=== PATIENT | female | born 1950 | race Caucasian/White ===

== ENCOUNTER 2016-11-12 07:10 | Outpatient (CLI) | payer MEDICARE, OTHER ==
[2016-11-12 14:55] LABS: BASOPHILS % (AUTO) 0.6 %; EOSINOPHILS # (AUTO) 0.1 10^3/uL (0.0-0.7); EOSINOPHILS % (AUTO) 2.6 %; HCT - HEMATOCRIT 37.8 % (37.0-47.0); HGB - HEMOGLOBIN 12.8 g/dL (12.0-16.0); LYMPHOCYTES # (AUTO) 1.6 10^3/uL (1.5-3.5); MEAN CORPUSCULAR HEMOGLOBIN 30.7 pg (27.0-31.0); MEAN CORPUSCULAR HGB CONC 33.8 g/dL (32.0-36.0); MEAN CORPUSCULAR VOLUME 90.6 fL (81.0-99.0); MEAN PLATELET VOLUME 7.7 fL (7.9-10.8); MONOCYTES # (AUTO) 0.4 10^3/uL (0.0-1.0); MONOCYTES % (AUTO) 7.7 %; NEUTROPHILS # (AUTO) 2.8 10^3/uL (1.5-6.6); NEUTROPHILS % (AUTO) 57.1 %; RED BLOOD COUNT 4.17 10^6/uL (4.20-5.40); RED CELL DISTRIBUTION WIDTH 13.9 % (12.0-15.0); UNCORRECTED WHITE BLOOD COUNT 4.9 x10^3/uL; WHITE BLOOD COUNT 4.9 x10^3/uL (4.8-10.8)
[2016-11-12 15:09] LABS: ALBUMIN/GLOBULIN RATIO 1.4 (1.0-2.2); BILIRUBIN,TOTAL 0.5 mg/dL (0.2-1.0); BUN - BLOOD UREA NITROGEN 16 mg/dL (6-20); CALCIUM 9.2 mg/dL (8.5-10.3); CARBON DIOXIDE - CO2 26 mmol/L (21-32); CHLORIDE 104 mmol/L (101-111); CHOL/HDL RATIO 3.6 (<4.4); CHOLESTEROL 207 mg/dL; CREATININE 0.6 mg/dL (0.4-1.0); GFR - MDRD 100 (>89); GLUCOSE 97 mg/dL (70-100); HDL CHOLESTEROL 58 mg/dL; LDL/HDL RATIO 2.2 (<4.4); POTASSIUM 3.9 mmol/L (3.5-5.0); SODIUM 136 mmol/L (135-145); TOTAL PROTEIN 7.3 g/dL (6.7-8.2); TRIGLYCERIDES 107 mg/dL; VLDL CHOLESTEROL 21 mg/dL
== END 2016-11-12 07:11 | disposition home or self-care (01) ==
LOC: LAB.WCP 07:10
PROVIDERS: ATTEND Family Medicine
DX: Z00.00 Encounter for general adult medical examination without abnormal findings (principal)
CPT/HCPCS: 36415; 80053; 80061; 85025

== ENCOUNTER 2017-02-07 09:13 | Day surgery (SDC) | payer MEDICARE, OTHER ==
[2017-02-07] MEDS ORDERED: LACTATED RINGERS 1,000 ML IV ONE (09:50)
[2017-02-07] MEDS ORDERED: fentaNYL 100 MCG/2 ML VIAL IVP ONE (10:55)
[2017-02-07] MEDS ORDERED: MIDAZOLAM 2 MG/2 ML VIAL IVP ONE (10:55)
[2017-02-07 11:45] VITALS: BP 96/53
== END 2017-02-07 09:14 | disposition home or self-care (01) ==
LOC: SDS 09:13
PROVIDERS: ATTEND Surgery
PROC: 0DBH8ZX Excision of Cecum, Via Natural or Artificial Opening Endoscopic, Diagnostic (ICD-10-PCS; principal; 2017-02-07 10:15)
DX: Z12.11 Encounter for screening for malignant neoplasm of colon (principal); D12.0 Benign neoplasm of cecum; Z80.0 Family history of malignant neoplasm of digestive organs; K57.30 Diverticulosis of large intestine without perforation or abscess without bleeding
CPT/HCPCS: 45380; J7120; 88305

== ENCOUNTER 2017-03-08 08:19 | Outpatient (CLI) | payer MEDICARE, OTHER ==
--- NOTE | 2017-03-09 15:23 | Mammography Report ---
DIGITAL SCREENING MAMMOGRAM: 03/08/2017 CLINICAL INDICATION: A 66-year-old, for screening. COMPARISON: 02/2016, 01/2015, 12/2013, 11/2012, 11/2011. TECHNIQUE: Routine CC and MLO projections were obtained of the breasts. FINDINGS: The breasts again demonstrate heterogeneously dense fibroglandular parenchyma bilaterally. Punctate, typically benign calcifications are present. No suspicious masses, clustered microcalcific ations, or regions of architectural distortion are identified. IMPRESSION: BENIGN FINDINGS. RECOMMENDATION: ROUTINE ANNUAL SCREENING UNLESS OTHERWISE CLINICALLY INDICATED. BIRADS CATEGORY 2-BENIGN FINDINGS. STANDARD QUALIFYING STATEMENTS 1. This examination was reviewed with the aid of Computer-Aided Detection (CAD). 2. A negative or benign imaging report should not delay biopsy if clinically suspicious findings are present. Consider surgical consultation if warranted. More than 5% of cancers are not identified by i maging. 3. Dense breasts may obscure an underlying neoplasm. JOB #: [id number] EXT JOB #:[id number]
== END 2017-03-08 08:20 | disposition home or self-care (01) ==
LOC: DI 08:19
PROVIDERS: ATTEND Family Medicine
DX: Z12.31 Encounter for screening mammogram for malignant neoplasm of breast (principal)
CPT/HCPCS: 77067

== ENCOUNTER 2017-05-30 08:00 | Outpatient (CLI) | payer MEDICARE, OTHER ==
[2017-05-30 19:40] LABS: BASOPHILS % (AUTO) 0.5 %; EOSINOPHILS # (AUTO) 0.1 10^3/uL (0.0-0.7); EOSINOPHILS % (AUTO) 2.7 %; HGB - HEMOGLOBIN 13.6 g/dL (12.0-16.0); LYMPHOCYTES # (AUTO) 1.6 10^3/uL (1.5-3.5); LYMPHOCYTES % (AUTO) 33.3 %; MEAN CORPUSCULAR HGB CONC 33.1 g/dL (32.0-36.0); MEAN CORPUSCULAR VOLUME 90.7 fL (81.0-99.0); MEAN PLATELET VOLUME 7.9 fL (7.9-10.8); MONOCYTES # (AUTO) 0.3 10^3/uL (0.0-1.0); MONOCYTES % (AUTO) 6.8 %; NEUTROPHILS # (AUTO) 2.7 10^3/uL (1.5-6.6); NEUTROPHILS % (AUTO) 56.7 %; PLT - PLATELET COUNT 300 10^3/uL (130-450); RED BLOOD COUNT 4.53 10^6/uL (4.20-5.40); RED CELL DISTRIBUTION WIDTH 14.3 % (12.0-15.0); WHITE BLOOD COUNT 4.8 x10^3/uL (4.8-10.8)
[2017-05-30 20:16] LABS: ALBUMIN 4.8 g/dL (3.2-5.5); ALBUMIN/GLOBULIN RATIO 1.5 (1.0-2.2); ALKALINE PHOSPHATASE 82 IU/L (42-121); ALT ALANINE AMINOTRANSFERASE 22 IU/L (10-60); AST ASPARTATE AMINOTRANSFERASE 24 IU/L (10-42); BILIRUBIN,TOTAL 0.4 mg/dL (0.2-1.0); BUN - BLOOD UREA NITROGEN 16 mg/dL (6-20); CALCIUM 9.6 mg/dL (8.5-10.3); CARBON DIOXIDE - CO2 25 mmol/L (21-32); CHLORIDE 100 mmol/L (101-111); CREATININE 0.7 mg/dL (0.4-1.0); GFR - MDRD 83 (>89); GLUCOSE 105 mg/dL (70-100); SODIUM 137 mmol/L (135-145); TOTAL PROTEIN 8.1 g/dL (6.7-8.2)
[2017-05-30 20:22] LABS: CRP - C-REACTIVE PROTEIN < 1.0 mg/dL (0-1.0)
== END 2017-05-30 08:01 | disposition home or self-care (01) ==
LOC: LAB.WCP 08:00
PROVIDERS: ATTEND Family Medicine
DX: R10.2 Pelvic and perineal pain (principal)
CPT/HCPCS: 36415; 80053; 85025; 86140; 86304

== ENCOUNTER 2017-06-06 19:50 | Outpatient (CLI) | payer MEDICARE, OTHER ==
--- NOTE | 2017-06-07 16:55 | Ultrasound Report ---
PELVIC ULTRASOUND: 06/06/2017 CLINICAL INDICATION: Pain. TECHNIQUE: Transabdominal pelvic ultrasound performed for global evaluation. Transvaginal pelvic ultrasound performed for detailed evaluation. Real-time scanning performed and static images obtained. FINDINGS: The patient is status post hysterectomy. Neither ovary was confidently identified on transabdominal or transvaginal scanning. No adnexal mass or free fluid is seen. IMPRESSION: NO EVIDENT ETIOLOGY FOR PATIENT'S PAIN. NONVISUALIZATION OF BOTH OVARIES. NO ADNEXAL MASS OR FREE FLUID. TD: 06/07/2017 16:54
== END 2017-06-06 19:51 | disposition home or self-care (01) ==
LOC: DI 19:50
PROVIDERS: ATTEND Family Medicine
DX: R10.2 Pelvic and perineal pain (principal)
CPT/HCPCS: 76830; 76856

== ENCOUNTER 2017-06-15 10:37 | Outpatient (CLI) | payer MEDICARE, OTHER ==
[2017-06-15] MEDS ORDERED: IOPAMIDOL-300 100 ML VIAL ONE (10:57)
[2017-06-15] MEDS ORDERED: IOPAMIDOL-300 50 ML VIAL ONE (10:57)
--- NOTE | 2017-06-15 14:36 | CT Report ---
CT ABDOMEN AND PELVIS WITH CONTRAST: 06/15/2017 CLINICAL INDICATION: Abdominal pain. TECHNIQUE: Axial CT images of the abdomen and pelvis were obtained with 80 mL Isovue 300 intravenously as well as oral contrast. No previous CT is available for comparison. FINDINGS: Limited evaluation of the lung bases demonstrates mild atelectasis. ABDOMEN: The liver demonstrates diffuse decrease in attenuation, compatible with fatty infiltration. No focal hepatic lesion is seen. The spleen, pancreas, kidneys and adrenal glands are unremarkable. The gallbladder is not dilated. No bowel dilatation, free gas, or free fluid is present. No abdominal adenopathy is seen. PELVIS: The patient is status post hysterectomy. Scattered diverticulosis is present, without CT evidence of diverticulitis. No pelvic adenopathy or free fluid is present. Osseous structures demonstrate degenerative changes. IMPRESSION: FATTY INFILTRATION OF THE LIVER. DIVERTICULOSIS WITHOUT CT EVIDENCE OF DIVERTICULITIS. NO EVIDENT ETIOLOGY FOR PATIENT'S ABDOMINAL PAIN. CT DOSE REDUCTION STATEMENT In accordance with CT protocol optimization, one or more of the following dose reduction techniques were utilized for this exam: automated exposure control, adjustment of mA and/or KV based on patient size, or use of iterative reconstructive technique. TD: 06/15/2017 14:35 JOHN
[2017-06-15] MEDS ORDERED: IOPAMIDOL-300 100 ML VIAL IVP ONE (16:45)
[2017-06-15] MEDS ORDERED: IOPAMIDOL-300 50 ML VIAL PO ONE (16:45)
== END 2017-06-15 10:38 | disposition home or self-care (01) ==
LOC: DI 10:37
PROVIDERS: ATTEND Family Medicine
DX: R10.9 Unspecified abdominal pain (principal); K76.0 Fatty (change of) liver, not elsewhere classified; K57.90 Diverticulosis of intestine, part unspecified, without perforation or abscess without bleeding
CPT/HCPCS: 74177; Q9967

== ENCOUNTER 2017-08-03 14:47 | Emergency (ER) | payer MEDICARE, OTHER ==
[2017-08-03] MEDS ORDERED: IOPAMIDOL-300 100 ML VIAL IVP ONE ×2 (14:48→16:08)
[2017-08-03 15:20] LABS: BASOPHILS % (AUTO) 0.4 %; EOSINOPHILS # (AUTO) 0.1 10^3/uL (0.0-0.7); HGB - HEMOGLOBIN 13.7 g/dL (12.0-16.0); LYMPHOCYTES # (AUTO) 1.6 10^3/uL (1.5-3.5); LYMPHOCYTES % (AUTO) 22.9 %; MEAN CORPUSCULAR HEMOGLOBIN 29.7 pg (27.0-31.0); MEAN CORPUSCULAR HGB CONC 33.1 g/dL (32.0-36.0); MEAN CORPUSCULAR VOLUME 89.6 fL (81.0-99.0); MEAN PLATELET VOLUME 7.7 fL (7.9-10.8); MONOCYTES # (AUTO) 0.6 10^3/uL (0.0-1.0); MONOCYTES % (AUTO) 8.4 %; NEUTROPHILS # (AUTO) 4.5 10^3/uL (1.5-6.6); NEUTROPHILS % (AUTO) 66.3 %; PLT - PLATELET COUNT 278 10^3/uL (130-450); RED BLOOD COUNT 4.63 10^6/uL (4.20-5.40); RED CELL DISTRIBUTION WIDTH 13.4 % (12.0-15.0); WHITE BLOOD COUNT 6.8 x10^3/uL (4.8-10.8)
[2017-08-03 15:28] LABS: ALBUMIN 4.9 g/dL (3.2-5.5); ALBUMIN/GLOBULIN RATIO 1.6 (1.0-2.2); BILIRUBIN,TOTAL 0.5 mg/dL (0.2-1.0); CALCIUM 9.5 mg/dL (8.5-10.3); CREATININE 0.7 mg/dL (0.4-1.0)
[2017-08-03] MEDS ORDERED: SODIUM CHLORIDE 0.9% 1,000 ML IV ONE (15:31)
--- NOTE | 2017-08-03 15:33 | ED Physician Documentation ---
PD HPI DYSPNEA - Stated complaint Stated Complaint: CHEST PX,SOB, DIZZINESS - Chief complaint Chief Complaint: Cardiac - History obtained from History obtained from: Patient, Family - History of Present Illness Timing - onset: How many days ago (5) Timing - onset during: Light activity Timing - duration: Days (5) Timing - details: Gradual onset, Still present Inciting event(s): Immobilization/travel Improved by: Rest Worsened by: Exertion Associated symptoms: Chest pain / discomfort. No: Fever, Cough, Hemoptysis, Wheezing, Palpitations, Diaphoresis, Bilateral edema, Unilateral edema Similar symptoms before: Has not had sx before Recently seen: Not recently seen - Additional information Additional information: 67-year-old female otherwise previously well as developed some shortness of breath on exertion. She is noted that this is substantially worse day by day and with even slight exertion she feels that she is having a hard time getting air in. She does not have a cough or a fever she is not producing phlegm she does not have congestion. She does have some chest pressure. She has been on a plane 5 days ago on about a 3 hour trip. And she relates that she has made this trip a number of times since the beginning of the year as her mother-in- law recently passed. She has not had shortness of breath previously she has not had to use inhalers. She can only relate this to what she has had previously once with some bronchitis. She has increased her dose of Oxcarbazipine in an attempt to control symptoms of mouth burning and she is concerned this medication might be causing her dizziness and dyspnea. Review of Systems Constitutional: denies: Fever Eyes: denies: Decreased vision Ears: denies: Ear pain Nose: denies: Rhinorrhea / runny nose, Congestion Throat: denies: Sore throat Cardiac: reports: Chest pain / pressure. denies: Palpitations, Pedal edema, Calf pain Respiratory: reports: Dyspnea. denies: Cough, Wheezing GI: denies: Abdominal Pain, Nausea, Vomiting : denies: Dysuria, Frequency Skin: denies: Rash Musculoskeletal: denies: Neck pain, Back pain, Extremity pain, Extremity swelling Neurologic: denies: Generalized weakness, Focal weakness, Numbness PD PAST MEDICAL HISTORY - Past Medical History Past Medical History: Yes Cardiovascular: None Respiratory: None, Other Endocrine/Autoimmune: None GI: GERD : None HEENT: None Psych: None Musculoskeletal: Osteoarthritis, Fibromyalgia Derm: None - Past Surgical History Past Surgical History: Yes General: Colonoscopy Ortho: Spine surgery /[employer]: Hysterectomy - Present Medications Home Medications: Ambulatory Orders Medication Instructions Recorded Confirmed Gabapentin [Neurontin] 300 mg PO TID 02/04/17 08/03/17 B12/Levomefolate Calcium/B-6 1 ea PO DAILY 08/03/17 08/03/17 [Foltx Tablet] Magnesium 250 mg PO DAILY 08/03/17 08/03/17 Melatonin 3 mg PO 08/03/17 OXcarbazepine [Oxcarbazepine] 300 mg PO 08/03/17 Dellrose 3,6,9 Combination No.7 92 mg PO DAILY 08/03/17 08/03/17 [Dellrose Dha] - Allergies Allergies/Adverse Reactions: Allergies Allergy/AdvReac Type Severity Reaction Status Date / Time Sulfa (Sulfonamide Allergy Unknown Verified 10/15/14 08:22 Antibiotics) - Social History Does the pt smoke?: No Smoking Status: Never smoker Does the pt drink ETOH?: Yes Does the pt have substance abuse?: No - POLST Patient has POLST: No PD ED PE NORMAL - Vitals Vital signs reviewed: Yes (hypertensive ) - General General: Alert and oriented X 3, No acute distress, Well developed/nourished - HEENT HEENT: Atraumatic, PERRL, EOMI, Ears normal, Other (dry mucous membranes) - Neck Neck: Supple, no meningeal sign, No bony TTP - Cardiac Cardiac: RRR, No murmur - Respiratory Respiratory: No respiratory distress, Clear bilaterally - Abdomen Abdomen: Soft, Non tender - Back Back: No CVA TTP, No spinal TTP - Derm Derm: Normal color, Warm and dry, No rash - Extremities Extremities: No deformity, No edema - Neuro Neuro: No motor deficit, No sensory deficit Eye Opening: Spontaneous Motor: Obeys Commands Verbal: Oriented GCS Score: 15 - Psych Psych: Normal mood, Normal affect Results - Vitals Vitals: Vital Signs - 24 hr 08/03/17 08/03/17 14:58 16:56 Temperature 37.0 C Heart Rate 84 78 Respiratory 15 16 Rate Blood Pressure 150/82 H 125/83 H O2 Saturation 100 96 Oxygen O2 Source Room air - EKG (time done) 1455 Rate: Rate (enter#) Rhythm: NSR, LAE [place]: LAD Other comments: Other comments (RSR in V1) Compare to prior EKG: Changed from prior EKG, Other (10-17-14 LAE has developed. ) Computer interpretation: Agree with computer - Labs Labs: Laboratory Tests 08/03/17 08/03/17 08/03/17 15:06 15:06 15:06 WBC 6.8 RBC 4.63 Hgb 13.7 Hct 41.4 MCV 89.6 MCH 29.7 MCHC 33.1 RDW 13.4 Plt Count 278 MPV 7.7 L Neut # 4.5 Lymph # 1.6 [place] # 0.6 Eos # 0.1 Baso # 0.0 Absolute Nucleated RBC 0.00 Nucleated RBC % 0.0 Sodium 136 Potassium 3.6 Chloride 101 Carbon Dioxide 26 Anion Gap 9.0 BUN 15 Creatinine 0.7 Estimated GFR (MDRD) 83 L Glucose 113 H Calcium 9.5 Total Bilirubin 0.5 AST 19 ALT 18 Alkaline Phosphatase 78 Troponin I < 0.04 Total Protein 8.0 Albumin 4.9 Globulin 3.1 Albumin/Globulin Ratio 1.6 Lipase 17 L - Rads (name of study) cta CHEST Radiology: Prelim report reviewed (Impression: No acute findings. No evidence for pulmonary emboli. See above.), EMP read indepedently, See rad report Procedures - IVC sono (time) 1528 Bedside IVC sono: IVC measures (cm) (1.21), IVC collapsed c insp (cm) (complete) , Dehydration (est 1 liter deficit) PD MEDICAL DECISION MAKING - ED course Complexity details: reviewed old records, reviewed results, re-evaluated patient , considered differential, d/w patient, d/w family ED course: 67 y/o female with a history of exertional dyspnea worsening over time and a history of plane travel has a negative CTA of the chest, normal EKG and cardiac markers and is found to be mildly volume depleted. An IV is running with saline for hydration. We did find the patient to be dehydrated estimated at 1 liter deficit. She has frequent PVC's as well. She is hydrated, given magnesium and has "some" improvement. I suspect as does the patient that the Oxcarbazipine may be implicated and she will contact her neurologist about reducing the dose of this as she feels that it has not helped with her symptoms. Departure - Departure Disposition: 01 Home, Self Care Clinical Impression: Dehydration Medication side effects present Qualifiers: Encounter type: initial encounter Qualified Code(s): T50.905A - Adverse effect of unspecified drugs, medicaments and biological substances, initial encounter Condition: Stable Instructions: ED Dehydration Follow-Up: Seamus Griffin DO [Primary Care Provider] - Comments: Today here in the emergency department it appears that there are mildly dehydrated and some of your symptoms may be related to medication you are taking. Talk to her neurologist about decreasing the dose of the medication you are on or discontinuing the medication entirely. We did not find any evidence of pulmonary embolism, lung pathology, heart attack, large vessel pathology, electrolyte abnormality or blood count abnormality. Stress is likely contributing to worsening of existing symptoms as well. Discharge Date/Time: 08/03/17 17:35
[2017-08-03] MEDS ORDERED: IOPAMIDOL-300 100 ML VIAL ONE (15:44)
[2017-08-03] MEDS ORDERED: MAGNESIUM SULFATE 2 GRAM 2 GM/50 ML BAG IV ONE (16:15)
--- NOTE | 2017-08-03 16:28 | CT Report ---
EXAM: CT ANGIOGRAM CHEST EXAM DATE: 08/03/2017 04:11 PM. CLINICAL HISTORY: Exertional shortness of air plane travel. COMPARISON: None. TECHNIQUE: Routine helical imaging was performed through the chest in the pulmonary arterial phase. I V Contrast: 80 mL Isovue 300. Reconstructions: Coronal 3-D MIP reconstructions.Sagittal and coronal. In accordance with CT protocol optimization, one or more of the following dose reduction techniques w ere utilized for this exam: automated exposure control, adjustment of mA and/or KV based on patient s ize, or use of iterative reconstructive technique. FINDINGS: Mild motion artifact limited. Pulmonary Arteries: No evidence for pulmonary emboli. Lungs/Pleura: No consolidation, nodules, or edema. No effusions or pneumothorax. Mediastinum: Normal. No cardiac enlargement or adenopathy. Thoracic Aorta: Unremarkable. Upper Abdomen: Unremarkable. Other: No acute bone findings. IMPRESSION: 1. No acute findings. No evidence for pulmonary emboli. See above. [facility] Referring Provider Line: [phone] SITE ID: [id number]
[2017-08-03 16:57] VITALS: BP 125/83
== END 2017-08-03 17:35 | disposition home or self-care (01) ==
LOC: ED 14:47
DX: E86.0 Dehydration (principal); I49.3 Ventricular premature depolarization; T42.1X5A Adverse effect of iminostilbenes, initial encounter; R06.00 Dyspnea, unspecified; R07.89 Other chest pain
CPT/HCPCS: 36415; 71275; 80053; 83690; 84484; 85025; 93005; 96365; 99283; 99284; Q9967

== ENCOUNTER 2017-09-07 09:55 | Outpatient (CLI) | payer MEDICARE, OTHER ==
--- NOTE | 2017-09-09 15:02 | DEXA Report ---
DEXA SCAN: 09/07/2017 CLINICAL INDICATION: Osteopenia. TECHNIQUE: Dual energy x-ray absorptiometry (DXA) was performed on a [employer] system. Regions measured are the AP spine, femoral neck, and, if needed, forearm. COMPARISON: None. In accordance with the International Society for Clinical Densitometry (ISCD) guidelines, data from previous exams may be reanalyzed using current recommendations and techniques. This is done to allow a more accurate basis for comparison with the current study. FINDINGS: The data for the lumbar spine is as follows: REGION BMD (g/cm/cm) T-SCORE Z-SCORE L1 0.973 -1.3 0.0 L2 1.015 -1.5 -0.2 L3 1.115 -0.7 0.6 L4 1.086 -0.9 0.4 TOTAL 1.055 -1.0 0.3 NOTE: All evaluable vertebrae are used for classification. The data for the hip is as follows: REGION BMD (g/cm/cm) T-SCORE Z-SCORE Neck 0.727 -2.2 -0.8 TOTAL 0.836 -1.4 -0.2 NOTE: The femoral neck or total proximal femur, whichever is lowest, is used for classification. IMPRESSION: THE WHO CLASSIFICATION BASED ON THE INTERNATIONAL REFERENCE STANDARD IS OSTEOPENIA. THE FRACTURE RISK IS INCREASED. RECOMMENDATION: Patients with diagnosis of osteoporosis or osteopenia should have regular bone mineral density assessment. For those eligible for Medicare, routine testing is allowed once every 2 years. Testing frequency can be increased for patients who have rapidly progressing disease or for those who are receiving medical therapy to restore bone mass. COMMENT: World Health Organization (WHO) definitions for osteoporosis and osteopenia: NORMAL BMD: T-score at 1.0 or higher, fracture risk is low. OSTEOPENIA BMD: T-score between 1.0 and -2.5, fracture risk is increased. OSTEOPOROSIS BMD: T-score at 2.5 or lower, fracture risk high. National Osteoporosis Foundation recommends: 1. Obtain adequate dietary calcium (at least 1200 mg per day) and vitamin D (400 -800 international units per day). 2. Participate, as appropriate, in regular weightbearing and muscle- strengthening exercise. 3. Avoid tobacco use and reduce alcohol and caffeine intake. 4. For more detailed information see the website at www.NOF.org. MTDD
== END 2017-09-07 09:56 | disposition home or self-care (01) ==
LOC: DI 09:55
PROVIDERS: ATTEND Family Medicine
DX: M85.88 Other specified disorders of bone density and structure, other site (principal)
CPT/HCPCS: 77080

== ENCOUNTER 2017-11-23 16:53 | Outpatient (CLI) | payer MEDICARE, OTHER | END 2017-11-23 16:54 | disposition short-term general hospital (02) | LOC: EMS 16:53 | PROVIDERS: ATTEND Surgery | DX: R07.9 Chest pain, unspecified (principal); R06.02 Shortness of breath | CPT/HCPCS: A0425; A0427 ==

== ENCOUNTER 2018-07-14 07:28 | Outpatient (CLI) | payer MEDICARE, OTHER ==
--- NOTE | 2018-07-14 16:02 | CT Report ---
Reason: ATYPICAL FACE PAIN Procedure Date: 07/14/2018 Accession Number: [id number] / [id number] Procedure: CT - MAXILLOFACIAL WO CPT Code: FULL RESULT: EXAM: CT MAXILLOFACIAL WITHOUT CONTRAST EXAM DATE: 07/14/2018 07:48 AM. CLINICAL HISTORY: ATYPICAL FACE PAIN. COMPARISONS: HEAD ANGIO 10/15/2014 10:30 AM FACIAL BONES 02/03/2006 11:29 AM. TECHNIQUE: Thin-section axial images were acquired of the face without contrast. Post-processing: Coronal and sagittal reformats. Other: None. In accordance with CT protocol optimization, one or more of the following dose reduction techniques were utilized for this exam: automated exposure control, adjustment of mA and/or KV based on patient size, or use of iterative reconstructive technique. FINDINGS: Soft Tissue: The infratemporal fossa and parapharyngeal spaces are unremarkable. Orbits: Symmetric and unremarkable. Bones: No fracture. Small 4 mm well-circumscribed lucencies in the odontoid, and C4 unchanged since prior head CTA. Incomplete posterior fusion C1 ring. Temporomandibular Joints: The temporomandibular joints are symmetric and normally located. Sinuses: Normal. No mucosal thickening or fluid levels. Other: None. IMPRESSION: 1. Negative maxillofacial CT. [facility]
== END 2018-07-14 07:29 | disposition home or self-care (01) ==
LOC: DI 07:28
PROVIDERS: ATTEND Nurse Practitioner
DX: G50.1 Atypical facial pain (principal)
CPT/HCPCS: 70486